=== PATIENT | male | born 1970 | race Caucasian/White ===

== ENCOUNTER 2018-10-08 05:08 | Inpatient (IN) ==
[2018-10-08] MEDS ORDERED: Chlorhexidine Gluconate 2% 1 Pack (2 Cloths) TOPICAL ONE (05:36)
[2018-10-08] MEDS ORDERED: Metoprolol Tartrate 25 MG Tablet PO ONE (05:36)
[2018-10-08] MEDS ORDERED: Vancomycin Inj 1,500 MG in Sodium Chlor 0.9% Inj 500 ML IV.SIG PRN (05:37)
[2018-10-08] MEDS ORDERED: Sodium Chlor 0.9% Inj 500 ML IV.SIG SCH (06:00)
[2018-10-08 06:58] LABS: Baso # (Auto) 0.1 th/mm3 (0.0-0.2); Eos # (Auto) 0.4 th/mm3 (0.0-0.4); Eos % (Auto) 3.4 % (0.0-4.0); Hematocrit 37.3 % (39.0-51.0); Hemoglobin 12.6 gm/dL (13.0-17.0); Lymph # (Auto) 2.2 th/mm3 (1.0-4.8); Lymph % (Auto) 19.5 % (9.0-44.0); Mean Corpuscular HGB Conc 33.8 % (32.0-36.0); Mean Corpuscular Hemoglobin 29.4 pg (27.0-34.0); Mean Corpuscular Volume 87.1 fL (80.0-100.0); Mean Platelet Volume 7.5 fL (7.0-11.0); Mono % (Auto) 8.7 % (0.0-8.0); Neut # (Auto) 7.6 th/mm3 (1.8-7.7); Neut % (Auto) 67.4 % (16.0-70.0); Platelet Count 475 th/mm3 (150-450); Red Blood Count 4.29 mil/mm3 (4.50-5.90); Red Cell Distribution Width 18.2 % (11.6-17.2); White Blood Count 11.2 th/mm3 (4.0-11.0)
[2018-10-08 07:23] LABS: Anion Gap 9 meq/L (5-15); Blood Urea Nitrogen 14 mg/dL (7-18); Calcium 8.2 mg/dL (8.5-10.1); Carbon Dioxide 24.8 meq/L (21.0-32.0); Chloride 107 meq/L (98-107); Glomerular Filtration Rate Greater Than 89 mL/min (>89); Glucose,Random 110 mg/dL (74-106); Potassium 3.7 meq/L (3.5-5.1); Sodium 141 meq/L (136-145)
[2018-10-08] MEDS ORDERED: Bupivacaine Liposomal PF 1.3% Inj 20 ML Vial ONE (07:44)
[2018-10-08] MEDS ORDERED: Clevidipine Inj 25 MG/50 ML VIAL ONE (07:46)
[2018-10-08] MEDS ORDERED: Lidocaine PF 1% Inj 5 ML Syringe OTHER ONE (07:46)
[2018-10-08] MEDS ORDERED: Phenylephrine/NS 1000 MCG/10ML Syringe IV.PUSH ONE (07:46)
[2018-10-08] MEDS ORDERED: Normosol-R pH 7.4 Inj 2,000 ML IV.CONT ONE (07:46)
[2018-10-08] MEDS ORDERED: Sodium Chlor 0.9% Inj 500 ML IV.CONT ONE (07:46)
[2018-10-08] MEDS ORDERED: MethylPREDNISolone Sod Succinate Inj 125 MG/2 ML Vial ONE (08:05)
[2018-10-08] MEDS ORDERED: Sugammadex Inj 200 MG/2 ML Vial IV.PUSH ONE (12:48)
[2018-10-08] MEDS ORDERED: Naloxone Inj 0.4 MG/ML Vial IV.PUSH PRN ×2 (13:20→13:23)
[2018-10-08] MEDS ORDERED: Promethazine 25 MG Supp RECTAL PRN (13:20)
[2018-10-08] MEDS ORDERED: Post-op Orders (for Pharmacy) OTHER ONE (13:20)
--- NOTE | 2018-10-08 13:26 | P.OP ---
- Preoperative Diagnosis (1) Adrenal mass, right (2) Pheochromocytoma of right adrenal gland - Postoperative Diagnosis (1) Adrenal mass, right (2) Pheochromocytoma of right adrenal gland Date of procedure: 10/08/18 Procedure: Exploratory laparotomy, attempted right adrenalectomy, biopsy of adrenal mass Anesthesia: MARY Surgeon: Elder Gilliam MD Servomechanism Assembler: Dr. Kendrick Harrell CFA Estimated blood loss (mL): 300 Pathology: other (Core needle biopsies of right adrenal mass, frozen and permanent section) Operation and Findings: Indications: This is a 48 yo M with incidental finding of right adrenal mass. MRI abdomen revealed heterogenous enhancing mass nearly 6 cm. Urinary metanephrines were elevated and he was treated with alpha milad in escalating doses for about two months until adequately blocked. He is admitted for elective right adrenalectomy. He has a h/o rheumatoid arthritis on multiple suppressive medications and all except low dose prednisone were stopped prior to surgery. Operative findings: Right adrenal mass is superior and medial and in retrocaval position. No significant hemodynamic changes with manipulation of the mass. Due to position of the mass posterior to retrohepatic IVC, resection was unable to be safely performed through the current transabdominal approach despite mobilization of surrounding organs. Dr. Marks, surgical oncologist assisting on the case, as well as my partner Dr. Mejía, agreed that further attempts at resection would be dangerous at this time and resection attempt was aborted. Because we could safely access the inferior aspect of the mass and to obtain tissue diagnosis, core needle biopsies were taken. Procedure in detail: The patient was taken to the operating room placed in the supine position. General endotracheal anesthesia was induced after placement of an arterial line. A central venous line and shell catheter were also placed. The patient was placed in supine position and a small roll was placed under the right flank for slight medial rotation of the right side. The abdomen was prepped and draped in usual sterile fashion and a surgical timeout was performed to verify correct patient procedure and site. A midline incision from xiphoid to just inferior to the umbilicus was made. Dissection carried through subcutaneous tissue and the fascial layer. The peritoneum was entered bluntly. The Bookwalter retractor was placed for appropriate exposure. Using the harmonic scalpel, the hepatic flexure of the colon was taken down. A Kellie maneuver was performed by incising the peritoneal reflection of the second and third portion of the duodenum and gently rotating this medially. The duodenum was mobilized superiorly to the shanique hepatis. This exposed the underlying IVC. The right border of the IVC was meticulously cleared of attached tissues. There were 2 areas of mild venous bleeding which were resolved using Surgicel snow and gentle pressure. The right gonadal vein was identified. The right renal vein was identified clearly entering the hilum of the right kidney. The right adrenal mass was noted to be very superior and medial in position. At this point, no portion of the adrenal mass was palpable inferior to the inferior border of the liver. The falciform ligament was divided. The left triangular ligament of the liver was divided in the left lobe rotated laterally. The gastrohepatic ligament was divided just past the shanique hepatis. With fairly aggressive retraction on the left lobe of the liver the right adrenal mass was palpable but continued to be superior to the area of exposure as well as posterior to the retrohepatic inferior vena cava. Exposure was attempted via this window medial to the shanique hepatis to the lesser sac as well as lateral to the shanique hepatis with superior retraction on the liver. The right adrenal mass was unable to be safely mobilized and resected. The inferior one third or so of the mass was mobilized using the harmonic scalpel. At this point we did send 3 core needle biopsies and frozen section revealed concerns for malignant pheochromocytoma. The mass was quite vascular and bleeding was resolved with Surgicel snow and FloSeal. We again attempted aggressive exposure of this mass. However the adrenal vein as well as the adherent area of the mass to the posterior IVC were unable to be safely exposed. Both Dr. Marks and I, as well as my partner Dr. Darinel Valdes felt that further attempts at resection were unsafe. Therefore, resection attempts were aborted. Hemostasis was adequate at this point. The midline fascia was then closed with #1 looped PDS suture. A [id number] #2 Vicryl was placed at the xiphoid for better closure. Skin was closed with wide skin garo sterile dressing applied. The patient tolerated the procedure well. He did not have hemodynamic instability. Sponge and instrument counts were correct.
[2018-10-08] MEDS ORDERED: HYDROmorphone PCA Inj 6 MG/30 ML PCA.VIAL PCA ONE (13:33)
[2018-10-08] MEDS: Sod Chloride 0.9% Inj 1,000 ML IV.CONT SCH ×2 (13:40→23:40)
[2018-10-08] MEDS ORDERED: Morphine Inj 4 MG/ML Vial ONE (13:44)
[2018-10-08] MEDS ORDERED: fentaNYL Citrate Inj 100 MCG/2 ML Ampul ONE (13:44)
[2018-10-08] MEDS: HYDROmorphone PCA Inj 6 MG/30 ML PCA.VIAL PCA PRN ×2 (14:00→22:30)
[2018-10-08 14:04] LABS: Hematocrit 36.2 % (39.0-51.0); Hemoglobin 12.2 gm/dL (13.0-17.0); Mean Corpuscular HGB Conc 33.6 % (32.0-36.0); Mean Corpuscular Hemoglobin 29.5 pg (27.0-34.0); Mean Corpuscular Volume 87.9 fL (80.0-100.0); Mean Platelet Volume 7.4 fL (7.0-11.0); Platelet Count 488 th/mm3 (150-450); Red Blood Count 4.12 mil/mm3 (4.50-5.90); Red Cell Distribution Width 17.9 % (11.6-17.2); White Blood Count 23.6 th/mm3 (4.0-11.0)
--- NOTE | 2018-10-08 14:04 | XR ---
EXAM DATE: 10/08/2018 1:58 PM EST AGE/SEX: 48 years / Male INDICATIONS: Evaluate right side central line. CLINICAL DATA: This is the patient's initial encounter. Patient reports that signs and symptoms have been present for 1 day and indicates a pain score of Nonresponsive. MEDICAL/SURGICAL HISTORY: Non-responsive. Non-responsive. COMPARISON: No prior exams available for comparison. FINDINGS: The heart is enlarged. There are bilateral effusions incision interstitial prominence consistent with congestive failure. The patient's central venous catheters in satisfactory position. CONCLUSION: Cardiomegaly with effusions and interstitial prominence suggesting CHF. Central venous catheter in go od position. Electronically signed by: Iron Chapman MD 10/08/2018 2:03 PM EST
[2018-10-08] MEDS ORDERED: *morphine SULFATE 4 MG/ML PERIprocedure ONLY ONE (14:13)
[2018-10-08] MEDS ORDERED: *Ondansetron Inj 4 MG/2 ML Vial PERIprocedural Use ONLY ONE (14:13)
[2018-10-08] MEDS ORDERED: *Labetalol HCl Inj 100 MG/20 ML Vial PERIprocedural Use ONLY IV.PUSH ONE (14:39)
--- NOTE | 2018-10-08 14:47 | ECG ---
Date Performed: 10/08/2018 Time Performed: 07:35:55 PTAGE: 48 years EKG: Ectopic atrial rhythm NONSPECIFIC ST & T-WAVE ABNORMALITY BORDERLINE ECG Compared to PREVIOUS TRACING the patient now appears to be in ectopic rhythm PREVIOUS TRACIN01/28 08.23 DOCTOR: Ayde Garcia Interpretating Date/Time 10/08/2018 14:45:43
[2018-10-08] MEDS: Ketorolac Inj 30 MG/ML (IVP) Vial IV.PUSH SCH ×2 (14:53→21:29)
[2018-10-08] MEDS ORDERED: *Enalaprilat Inj 1.25 MG/ML Vial IV.PUSH ONE (15:22)
[2018-10-08] MEDS ORDERED: Labetalol HCl Inj 100 MG/20 ML Vial IV.PUSH PRN (16:54)
[2018-10-08] MEDS ORDERED: Prazosin HCl 1 MG Capsule PO SCH (17:00)
[2018-10-08] MEDS: Metoprolol Tartrate 25 MG Tablet PO SCH (21:30)
[2018-10-09] MEDS: HYDROmorphone PCA Inj 6 MG/30 ML PCA.VIAL PCA PRN ×7 (02:30→20:56)
[2018-10-09] MEDS: Ketorolac Inj 30 MG/ML (IVP) Vial IV.PUSH SCH ×4 (03:12→20:15)
[2018-10-09 06:10] LABS: Baso % (Auto) 0.2 % (0.0-2.0); Eos % (Auto) 0.3 % (0.0-4.0); Hematocrit 35.4 % (39.0-51.0); Lymph # (Auto) 0.8 th/mm3 (1.0-4.8); Lymph % (Auto) 5.7 % (9.0-44.0); Mean Corpuscular HGB Conc 31.2 % (32.0-36.0); Mean Corpuscular Volume 89.8 fL (80.0-100.0); Mean Platelet Volume 7.6 fL (7.0-11.0); Mono # (Auto) 0.9 th/mm3 (0.0-0.9); Mono % (Auto) 6.2 % (0.0-8.0); Neut % (Auto) 87.6 % (16.0-70.0); Platelet Count 389 th/mm3 (150-450); Red Blood Count 3.94 mil/mm3 (4.50-5.90); Red Cell Distribution Width 17.7 % (11.6-17.2); White Blood Count 14.9 th/mm3 (4.0-11.0)
[2018-10-09 06:22] LABS: Anion Gap 6 meq/L (5-15); Blood Urea Nitrogen 18 mg/dL (7-18); Calcium 7.6 mg/dL (8.5-10.1); Carbon Dioxide 29.9 meq/L (21.0-32.0); Chloride 106 meq/L (98-107); Glomerular Filtration Rate Greater Than 89 mL/min (>89); Glucose,Random 109 mg/dL (74-106); Potassium 4.5 meq/L (3.5-5.1); Sodium 142 meq/L (136-145)
[2018-10-09] MEDS: Sod Chloride 0.9% Inj 1,000 ML IV.CONT SCH ×2 (07:39→19:56)
[2018-10-09] MEDS: predniSONE 5 MG Tablet PO SCH (08:38)
[2018-10-09] MEDS: Metoprolol Tartrate 25 MG Tablet PO SCH ×2 (08:38→20:15)
[2018-10-09] MEDS ORDERED: PROPECIA PO SCH (09:00)
[2018-10-09] MEDS: Enoxaparin Inj 40 MG/0.4 ML Syringe SQ SCH (12:55)
--- NOTE | 2018-10-09 14:11 | P.PNGS ---
Subjective Interval history: C/o hiccups. Tolerating water. Was OOB and walked today. Physical Exam Vital signs: Vital Signs 10/08/18 14:10 10/08/18 14:15 10/08/18 14:16 Temperature Pulse Rate 74 76 Respiratory Rate 16 17 15 Blood Pressure 163/85 H 159/85 H Pulse Oximetry 95 96 10/08/18 14:30 10/08/18 14:45 10/08/18 15:00 Temperature 97.4 F L Pulse Rate 75 65 65 Respiratory Rate 14 15 16 Blood Pressure 160/88 H 165/89 H 165/87 H Pulse Oximetry 93 L 97 99 10/08/18 15:15 10/08/18 15:30 10/08/18 15:45 Temperature Pulse Rate 64 72 68 Respiratory Rate 13 19 14 Blood Pressure 163/88 H 169/81 H 158/90 H Pulse Oximetry 100 100 100 10/08/18 16:08 10/08/18 16:19 10/08/18 17:00 Temperature 97.6 F Pulse Rate 68 68 Respiratory Rate 17 16 Blood Pressure 185/94 H 173/95 H Pulse Oximetry 98 99 89 L 10/08/18 17:10 10/08/18 18:00 10/08/18 18:10 Temperature Pulse Rate 70 81 61 Respiratory Rate 18 12 16 Blood Pressure 170/82 H 167/82 H Pulse Oximetry 97 96 96 10/08/18 19:00 10/08/18 19:10 10/08/18 20:00 Temperature 98.1 F Pulse Rate 67 69 73 Respiratory Rate 20 23 25 H Blood Pressure 146/89 H Pulse Oximetry 97 93 L 98 10/08/18 20:10 10/08/18 21:00 10/08/18 21:10 Temperature Pulse Rate 75 71 70 Respiratory Rate 19 19 10 L Blood Pressure 139/61 149/95 H Pulse Oximetry 97 96 98 10/08/18 22:00 10/08/18 22:10 10/08/18 23:00 Temperature Pulse Rate 69 68 65 Respiratory Rate 18 17 12 Blood Pressure 128/84 Pulse Oximetry 96 96 95 10/08/18 23:10 10/09/18 00:00 10/09/18 01:00 Temperature 98.5 F Pulse Rate 68 72 69 Respiratory Rate 10 L 12 13 Blood Pressure 123/68 122/61 106/60 Pulse Oximetry 95 95 95 10/09/18 02:00 10/09/18 03:00 10/09/18 04:00 Temperature 98.7 F Pulse Rate 73 65 71 Respiratory Rate 13 33 H 24 Blood Pressure 97/63 L Pulse Oximetry 95 90 L 100 10/09/18 07:00 10/09/18 07:10 10/09/18 08:00 Temperature 98.9 F Pulse Rate 70 70 78 Respiratory Rate 28 H 25 H 33 H Blood Pressure 123/59 L Pulse Oximetry 99 99 95 10/09/18 08:07 10/09/18 08:10 10/09/18 08:34 Temperature Pulse Rate 74 Respiratory Rate 18 27 H 20 Blood Pressure 107/58 L Pulse Oximetry 94 L 10/09/18 09:00 10/09/18 09:10 10/09/18 09:28 Temperature Pulse Rate 79 74 79 Respiratory Rate 22 24 24 Blood Pressure 104/71 111/59 L Pulse Oximetry 94 L 93 L 93 L 10/09/18 10:00 10/09/18 10:10 10/09/18 11:00 Temperature Pulse Rate 71 72 69 Respiratory Rate 16 16 27 H Blood Pressure 107/59 L Pulse Oximetry 93 L 92 L 89 L 10/09/18 11:10 10/09/18 12:00 Temperature 98.7 F Pulse Rate 71 63 Respiratory Rate 23 14 Blood Pressure 117/63 Pulse Oximetry 93 L 93 L Intake & Output 10/08/18 10/09/18 10/09/18 18:59 06:59 18:59 Intake Total 6100 / 6100 1340 / 1340 200 / 200 Output Total 1500 / 1500 550 / 550 Balance 4600 / 4600 790 / 790 200 / 200 Intake: IV 100 / 100 1100 / 1100 200 / 200 NS Inj 1,000 ML @ 50 mls/hr IV. 1000 / 1000 CONT .Q20H DAMIAN Rx#:[id number] Ofirmev Inj 1,000 mg In 100 ml 100 / 100 100 / 100 200 / 200 @ 400 mls/hr IV.SIG Q6H DAMIAN Rx# :[id number] LR 1000 mL Inj 1,000 ML @ 30 0 / 0 mls/hr IV.SIG .Q24H DAMIAN Rx#: [id number] Oral 240 / 240 Anesthesia Amount 6000 / 6000 Output: Urine 600 / 600 Estimated Blood Loss 800 / 800 Urine Amount (Catheter) 100 / 100 550 / 550 Indwelling Urethral Catheter 100 / 100 550 / 550 Narrative: NAD O2 sat low 90s on NC O2 Abd: soft, bandage in place Shell clear uop - Urinary Catheter Management Indwelling Urethral Catheter Cath placed during this visit: yes Reason for continuing: Hourly intake/output Insertion date: 10/08/18 Results - Labs 10/09/18 05:09 10/09/18 05:09 Laboratory Results - last 24 hr 10/09/18 10/09/18 05:09 05:09 WBC 14.9 H RBC 3.94 L Hgb 11.0 L Hct 35.4 L MCV 89.8 MCH 28.0 MCHC 31.2 L RDW 17.7 H Plt Count 389 MPV 7.6 Neut % (Auto) 87.6 H Lymph % (Auto) 5.7 L Yell % (Auto) 6.2 Eos % (Auto) 0.3 Baso % (Auto) 0.2 Neut # (Auto) 13.0 H Lymph # (Auto) 0.8 L Yell # (Auto) 0.9 Eos # (Auto) 0.0 Baso # (Auto) 0.0 WBC Differential . Differential Comment Auto diff final Sodium 142 Potassium 4.5 D Chloride 106 Carbon Dioxide 29.9 Anion Gap 6 BUN 18 Creatinine 0.56 L Estimated GFR Greater than 89 Random Glucose 109 H Calcium 7.6 L - Imaging Imaging: ITS Impressions Chest X-Ray 10/08/18 13:40 CONCLUSION: Cardiomegaly with effusions and interstitial prominence suggesting CHF. Central venous catheter in good position. Assessment and Plan - Assessment (1) Adrenal mass, right Code(s): E27.9 - Disorder of adrenal gland, unspecified Status: Acute - Plan POD 1 ex lap and biopsy of right adrenal mass. Stable post op. Has hiccups. O2 sat marginal on O2. Give lasix 20mg. Cont DECORATION CHECKER Cont shell. Fulls. DVT proph: SCDs. Lovenox.
[2018-10-10] MEDS: Ketorolac Inj 30 MG/ML (IVP) Vial IV.PUSH SCH ×4 (03:21→21:58)
[2018-10-10] MEDS: Sod Chloride 0.9% Inj 1,000 ML IV.CONT SCH (03:21)
[2018-10-10 04:25] LABS: Hematocrit 29.7 % (39.0-51.0); Hemoglobin 9.6 gm/dL (13.0-17.0); Mean Corpuscular HGB Conc 32.3 % (32.0-36.0); Mean Corpuscular Hemoglobin 28.5 pg (27.0-34.0); Mean Corpuscular Volume 88.2 fL (80.0-100.0); Mean Platelet Volume 7.5 fL (7.0-11.0); Platelet Count 325 th/mm3 (150-450); Red Blood Count 3.36 mil/mm3 (4.50-5.90); Red Cell Distribution Width 17.8 % (11.6-17.2); White Blood Count 11.2 th/mm3 (4.0-11.0)
[2018-10-10 05:09] LABS: Anion Gap 6 meq/L (5-15); Blood Urea Nitrogen 21 mg/dL (7-18); Calcium 7.7 mg/dL (8.5-10.1); Carbon Dioxide 30.1 meq/L (21.0-32.0); Chloride 103 meq/L (98-107); Glomerular Filtration Rate Greater Than 89 mL/min (>89); Glucose,Random 86 mg/dL (74-106); Potassium 4.2 meq/L (3.5-5.1); Sodium 139 meq/L (136-145)
[2018-10-10] MEDS: Metoprolol Tartrate 25 MG Tablet PO SCH ×2 (08:29→21:58)
[2018-10-10] MEDS: predniSONE 5 MG Tablet PO SCH (08:30)
[2018-10-10] MEDS: HYDROmorphone PCA Inj 6 MG/30 ML PCA.VIAL PCA PRN ×4 (08:30→21:58)
--- NOTE | 2018-10-10 10:32 | P.PNGS ---
Subjective Interval history: No complaints. Tolerating some diet. Pain controlled with MANAGER OF PLANNING. Requiring O2. Physical Exam Vital signs: Vital Signs 10/09/18 11:00 10/09/18 11:10 10/09/18 12:00 Temperature 98.7 F Pulse Rate 69 71 63 Respiratory Rate 27 H 23 14 Blood Pressure 117/63 Pulse Oximetry 89 L 93 L 93 L 10/09/18 12:10 10/09/18 13:00 10/09/18 13:10 Temperature Pulse Rate 65 71 65 Respiratory Rate 14 16 16 Blood Pressure 107/53 L 108/52 L Pulse Oximetry 88 L 93 L 91 L 10/09/18 14:00 10/09/18 14:10 10/09/18 15:00 Temperature Pulse Rate 81 74 70 Respiratory Rate 26 H 26 H 20 Blood Pressure 104/55 L Pulse Oximetry 90 L 89 L 84 L 10/09/18 15:10 10/09/18 16:00 10/09/18 16:10 Temperature 98.5 F Pulse Rate 66 73 72 Respiratory Rate 15 16 22 Blood Pressure 98/53 L 97/56 L Pulse Oximetry 93 L 94 L 94 L 10/09/18 17:00 10/09/18 17:10 10/09/18 18:00 Temperature Pulse Rate 75 68 77 Respiratory Rate 24 25 H 28 H Blood Pressure 105/53 L Pulse Oximetry 95 96 91 L 10/09/18 18:10 10/09/18 19:00 10/09/18 20:00 Temperature 98.4 F Pulse Rate 63 70 69 Respiratory Rate 15 14 12 Blood Pressure 102/50 L 98/63 L 100/57 L Pulse Oximetry 95 95 99 10/09/18 21:00 10/09/18 22:00 10/09/18 23:00 Temperature Pulse Rate 71 68 67 Respiratory Rate 20 10 L 10 L Blood Pressure 107/56 L 100/57 L 101/54 L Pulse Oximetry 99 98 100 10/10/18 00:00 10/10/18 01:00 10/10/18 02:00 Temperature 98 F Pulse Rate 65 69 67 Respiratory Rate 11 L 11 L 10 L Blood Pressure 97/55 L 111/56 L 117/57 L Pulse Oximetry 99 100 100 10/10/18 03:00 10/10/18 04:00 10/10/18 05:00 Temperature 98.4 F Pulse Rate 68 74 66 Respiratory Rate 18 137 H 11 L Blood Pressure 113/56 L 112/56 L 109/59 L Pulse Oximetry 100 95 98 10/10/18 06:00 10/10/18 06:10 10/10/18 07:00 Temperature Pulse Rate 69 69 68 Respiratory Rate 12 9 L 9 L Blood Pressure 122/65 122/65 Pulse Oximetry 98 98 97 10/10/18 07:10 Temperature Pulse Rate 69 Respiratory Rate 9 L Blood Pressure 118/57 L Pulse Oximetry 98 Intake & Output 10/09/18 10/10/18 10/10/18 18:59 06:59 18:59 Intake Total 200 / 200 1240 / 1240 Output Total 800 / 800 650 / 650 Balance -600 / -600 590 / 590 Intake: IV 200 / 200 1000 / 1000 NS Inj 1,000 ML @ 50 mls/hr IV. 1000 / 1000 CONT .Q20H DAMIAN Rx#:[id number] Ofirmev Inj 1,000 mg In 100 ml 200 / 200 @ 400 mls/hr IV.SIG Q6H DAMIAN Rx# :[id number] Oral 240 / 240 Output: Urine Amount (Catheter) 800 / 800 650 / 650 Indwelling Urethral Catheter 800 / 800 650 / 650 Other: # Bowel Movements 0 Narrative: NAD Abd: soft, inc c/d/i Shell ever urine - Urinary Catheter Management Indwelling Urethral Catheter Cath placed during this visit: yes Reason for continuing: Hourly intake/output Insertion date: 10/08/18 Results - Labs 10/10/18 03:55 10/10/18 03:55 Laboratory Results - last 24 hr 10/10/18 10/10/18 03:55 03:55 WBC 11.2 H RBC 3.36 L Hgb 9.6 L Hct 29.7 L MCV 88.2 MCH 28.5 MCHC 32.3 RDW 17.8 H Plt Count 325 MPV 7.5 Sodium 139 Potassium 4.2 Chloride 103 Carbon Dioxide 30.1 Anion Gap 6 BUN 21 H Creatinine 0.53 L Estimated GFR Greater than 89 Random Glucose 86 Calcium 7.7 L - Imaging Imaging: ITS Impressions Chest X-Ray 10/08/18 13:40 CONCLUSION: Cardiomegaly with effusions and interstitial prominence suggesting CHF. Central venous catheter in good position. Assessment and Plan - Assessment (1) Adrenal mass, right Code(s): E27.9 - Disorder of adrenal gland, unspecified Status: Acute - Plan POD 2 ex lap and biopsy of right adrenal mass. Stable post op. Cont MANAGER OF PLANNING D/c shell. Fulls. DVT proph: SCDs. Lovenox. Transfer to floor.
[2018-10-10] MEDS: Enoxaparin Inj 40 MG/0.4 ML Syringe SQ SCH (12:00)
[2018-10-11] MEDS: Ketorolac Inj 30 MG/ML (IVP) Vial IV.PUSH SCH ×5 (03:11→20:09)
[2018-10-11] MEDS: HYDROmorphone PCA Inj 6 MG/30 ML PCA.VIAL PCA PRN (06:04)
[2018-10-11 06:14] LABS: Hemoglobin 8.4 gm/dL (13.0-17.0); Mean Corpuscular HGB Conc 33.7 % (32.0-36.0); Mean Corpuscular Hemoglobin 29.4 pg (27.0-34.0); Mean Corpuscular Volume 87.3 fL (80.0-100.0); Mean Platelet Volume 7.6 fL (7.0-11.0); Platelet Count 312 th/mm3 (150-450); Red Blood Count 2.87 mil/mm3 (4.50-5.90); Red Cell Distribution Width 17.6 % (11.6-17.2); White Blood Count 12.6 th/mm3 (4.0-11.0)
[2018-10-11 06:45] LABS: Anion Gap 5 meq/L (5-15); Blood Urea Nitrogen 17 mg/dL (7-18); Calcium 7.4 mg/dL (8.5-10.1); Carbon Dioxide 30.7 meq/L (21.0-32.0); Chloride 100 meq/L (98-107); Glomerular Filtration Rate Greater Than 89 mL/min (>89); Glucose,Random 113 mg/dL (74-106); Potassium 4.2 meq/L (3.5-5.1); Sodium 136 meq/L (136-145)
[2018-10-11 07:10] LABS: Calcium-Albumin Corrected 8.8 mg/dL (8.5-10.1); Total Protein 4.6 g/dL (6.4-8.2)
[2018-10-11] MEDS: predniSONE 5 MG Tablet PO SCH (09:51)
[2018-10-11] MEDS: Metoprolol Tartrate 25 MG Tablet PO SCH ×2 (09:51→20:12)
[2018-10-11] MEDS ORDERED: HYDROmorphone PF Inj 0.5 MG/0.5 ML Syringe IV.PUSH PRN (12:24)
--- NOTE | 2018-10-11 12:28 | P.PNGS ---
Subjective Interval history: Doing well without complaint. Tolerating diet. No bm yet. Requiring O2. Physical Exam Vital signs: Vital Signs 10/10/18 13:00 10/10/18 13:10 10/10/18 14:00 Temperature Pulse Rate 71 71 75 Respiratory Rate 16 12 11 L Blood Pressure 131/60 Pulse Oximetry 94 L 94 L 90 L 10/10/18 14:10 10/10/18 15:00 10/10/18 15:10 Temperature Pulse Rate 76 76 80 Respiratory Rate 13 19 30 H Blood Pressure 138/63 148/60 H Pulse Oximetry 86 L 94 L 93 L 10/10/18 15:41 10/10/18 16:00 10/10/18 16:10 Temperature 98.3 F Pulse Rate 75 85 Respiratory Rate 14 127 H 119 H Blood Pressure 131/64 Pulse Oximetry 96 95 10/10/18 17:00 10/10/18 19:45 10/10/18 19:46 Temperature Pulse Rate 75 Respiratory Rate 16 19 Blood Pressure Pulse Oximetry 95 10/10/18 20:00 10/11/18 00:40 10/11/18 03:10 Temperature 98.9 F 98.1 F 98.8 F Pulse Rate 86 76 77 Respiratory Rate 18 18 18 Blood Pressure 111/59 L 110/55 L 124/59 L Pulse Oximetry 95 93 L 90 L 10/11/18 08:00 10/11/18 08:10 10/11/18 10:21 Temperature 98.8 F Pulse Rate 78 72 Respiratory Rate 20 16 18 Blood Pressure 118/56 L Pulse Oximetry 90 L 90 L 10/11/18 11:00 10/11/18 12:00 Temperature 98.2 F Pulse Rate 89 Respiratory Rate 18 16 Blood Pressure 113/57 L Pulse Oximetry 90 L Intake & Output 10/10/18 10/11/18 10/11/18 18:59 06:59 18:59 Intake Total 1035 / 1035 1440 / 1440 Output Total 670 / 670 Balance 365 / 365 1440 / 1440 Weight 98.3 kg Intake: IV 515 / 515 1100 / 1100 Vancomycin Inj 1,500 MG In NS 515 / 515 Inj 500 ML @ 250 mls/hr IV.SIG SOFTWARE BUSINESS ANALYST PRN Rx#:[id number] Oral 520 / 520 340 / 340 Output: Urine 120 / 120 Urine Amount (Catheter) 550 / 550 Indwelling Urethral Catheter 550 / 550 Other: # Voids 1 600 Date of Last Bowel Movement 10/06/18 10/06/18 10/06/18 Narrative: NAD, sitting comfortably in chair Nonlabored breathing on 4L O2 Abd: soft, inc c/d/i - Urinary Catheter Management Indwelling Urethral Catheter Cath placed during this visit: yes Reason for continuing: Hourly intake/output Insertion date: 10/08/18 Results - Labs 10/11/18 05:00 10/11/18 05:00 Laboratory Results - last 24 hr 10/08/18 10/11/18 10/11/18 06:35 05:00 05:00 WBC 12.6 H RBC 2.87 L Hgb 8.4 L Hct 25.0 L MCV 87.3 MCH 29.4 MCHC 33.7 RDW 17.6 H Plt Count 312 MPV 7.6 Sodium 136 Potassium 4.2 Chloride 100 Carbon Dioxide 30.7 Anion Gap 5 BUN 17 Creatinine 0.45 L Estimated GFR Greater than 89 Random Glucose 113 H Calcium 7.4 L* Prot Corrected Calcium 8.8 Total Protein 4.6 L MTS Gel Crossmatch See Detail - Imaging Imaging: ITS Impressions Chest X-Ray 10/08/18 13:40 CONCLUSION: Cardiomegaly with effusions and interstitial prominence suggesting CHF. Central venous catheter in good position. Assessment and Plan - Plan POD 3 ex lap and biopsy of right adrenal mass. Stable post op. Recheck CBC in am as h/h has been trending down. D/c MANAGER ADVANCED Regular diet. DVT proph: SCDs. Lovenox.
[2018-10-11] MEDS: HYDROmorphone PF Inj 1 MG/ML Ampul IV.PUSH PRN ×2 (16:56→21:52)
[2018-10-11] MEDS: Enoxaparin Inj 40 MG/0.4 ML Syringe SQ SCH (16:59)
[2018-10-12] MEDS: Ketorolac Inj 30 MG/ML (IVP) Vial IV.PUSH SCH ×3 (03:39→16:00)
[2018-10-12] MEDS: ALPRAZolam 0.5 MG Tablet PO PRN ×2 (03:44→13:11)
[2018-10-12 08:06] LABS: Hematocrit 26.2 % (39.0-51.0); Hemoglobin 8.8 gm/dL (13.0-17.0); Mean Corpuscular HGB Conc 33.7 % (32.0-36.0); Mean Corpuscular Hemoglobin 28.9 pg (27.0-34.0); Mean Platelet Volume 7.9 fL (7.0-11.0); Platelet Count 346 th/mm3 (150-450); Red Blood Count 3.05 mil/mm3 (4.50-5.90); Red Cell Distribution Width 17.7 % (11.6-17.2); White Blood Count 11.9 th/mm3 (4.0-11.0)
[2018-10-12] MEDS: Metoprolol Tartrate 25 MG Tablet PO SCH (08:58)
[2018-10-12] MEDS: predniSONE 5 MG Tablet PO SCH (09:01)
[2018-10-12 12:09] VITALS: BP 105/56; TEMP 98.3
[2018-10-12 13:28] VITALS: PULSE 80; RESP 16
--- NOTE | 2018-10-12 13:35 | P.PNGS ---
Subjective Patient reports: no new complaints, tolerating a regular diet, flatus, no bowel movement Physical Exam Vital signs: Vital Signs 10/11/18 16:00 10/11/18 17:26 10/11/18 17:52 Temperature 97.9 F Pulse Rate 79 Respiratory Rate 20 16 16 Blood Pressure 119/58 L Pulse Oximetry 91 L 10/11/18 20:00 10/11/18 20:37 10/11/18 20:38 Temperature 98.7 F Pulse Rate 84 79 Respiratory Rate 18 20 Blood Pressure 118/56 L Pulse Oximetry 91 L 91 L 10/11/18 20:40 10/11/18 23:40 10/12/18 04:00 Temperature 97.7 F 98.4 F Pulse Rate 74 80 Respiratory Rate 19 18 18 Blood Pressure 99/56 L 117/59 L Pulse Oximetry 91 L 91 L 10/12/18 08:00 10/12/18 08:24 10/12/18 10:10 Temperature 98.0 F Pulse Rate 79 76 Respiratory Rate 18 16 16 Blood Pressure 124/64 Pulse Oximetry 91 L 95 10/12/18 10:11 10/12/18 12:00 10/12/18 13:27 Temperature 98.3 F Pulse Rate 71 80 Respiratory Rate 16 18 16 Blood Pressure 105/56 L Pulse Oximetry 90 L Intake & Output 10/11/18 10/12/18 10/12/18 18:59 06:59 18:59 Intake Total 1180 / 1180 320 / 320 Output Total 1400 / 1400 Balance 1180 / 1180 -1080 / -1080 Weight 99.7 kg Intake: Oral 1180 / 1180 320 / 320 Output: Urine 1400 / 1400 Other: # Voids 3 Date of Last Bowel Movement 10/06/18 10/06/18 10/06/18 - Constitutional no acute distress - Routine Respiratory Exam Absent: accessory muscle use - Routine Cardiovascular Exam Present: RRR - Routine Abdominal Exam Present: soft, surgical scars. Absent: tenderness, distended - Urinary Catheter Management Indwelling Urethral Catheter Cath placed during this visit: yes Reason for continuing: Hourly intake/output Insertion date: 10/08/18 Results - Labs 10/12/18 06:07 10/11/18 05:00 Laboratory Results - last 24 hr 10/12/18 06:07 WBC 11.9 H RBC 3.05 L Hgb 8.8 L Hct 26.2 L MCV 86.0 MCH 28.9 MCHC 33.7 RDW 17.7 H Plt Count 346 MPV 7.9 - Imaging Imaging: ITS Impressions Chest X-Ray 10/08/18 13:40 CONCLUSION: Cardiomegaly with effusions and interstitial prominence suggesting CHF. Central venous catheter in good position. Assessment and Plan - Assessment (1) Adrenal mass, right Code(s): E27.9 - Disorder of adrenal gland, unspecified Status: Acute Plan: D/C home f/u office next week no strenuous activities call office for fever chills increase abdominal pain
[2018-10-12 14:39] VITALS: O2SAT 95
--- NOTE | 2018-10-29 11:52 | P.DS ---
Date of admission: 10/08/18 05:08 Primary care physician: Mahsa Spencer MD Attending physician on discharge: Darinel Mejía Brief History from admission: Pt admitted for laproscopic biopsy of right adrenal phechromocytoma, with expoloratory laparotomy attempting to resect right adrenal mass. Mass was successfully biopsied however, Dr. Gilliam was unable to safely resect the right adrenal mass. Postoperative recovery proceeded with minimal complication, and patient was discharged home with follow up outpatient in 10 days. This note documented on behalf of Dr. Mejía. DS: Diagnosis - Discharge Diagnosis (1) Adrenal mass, right Status: Acute (2) Pheochromocytoma of right adrenal gland Status: Acute DS: Medications - Discharge Medications Prescriptions: hydrocodone-acetaminophen [[place]] 1 - 2 tab PO Q4H PRN #40 tab PRN Reason: Acute Pain DS: Summary Hospital Course: with minimal complication. - Time Spent with Patient Total time spent providing and/or coordinating discharge services: Less than 30 minutes - Quality: AMI Clinical Trial Participant: No - Quality: Stroke Symptom Onset Unknown: No - Quality: VTE Is this test being ordered to rule out VTE?: No Deep Vein Thrombosis/Pulmonary Embolism Present on Admission: No Exam Narrative: GENERAL: SKIN: Warm and dry. HEAD: Normocephalic. EYES: No scleral icterus. No injection or drainage. NECK: Supple, trachea midline. No JVD or lymphadenopathy. CARDIOVASCULAR: Regular rate and rhythm without murmurs, gallops, or rubs. RESPIRATORY: Breath sounds equal bilaterally. No accessory muscle use. GASTROINTESTINAL: Abdomen soft, normal post operative tenderness, laparoscopic sites WNL, mildly distended. MUSCULOSKELETAL: No cyanosis, or edema. BACK: Nontender without obvious deformity. No CVA tenderness. Results Procedures completed during hospitalization: Exploratory laparotomy attempted resection of right adrenal mass, with successful right adrenal mass biopsy. - Impressions ITS Impressions Chest X-Ray 10/08/18 13:40 CONCLUSION: Cardiomegaly with effusions and interstitial prominence suggesting CHF. Central venous catheter in good position. Discharge Plan - Discharge Disposition Patient Disposition: 01 Discharge Home - Discharge Condition Condition: Good - Discharge Order Discharge Orders: Discharge Order (Routine); Ordered 10/12/18 Ordered By: Darinel Mejía - Discharge Details Anticipated Discharge Date: 10/12/18 - Physicians Team Primary Care Provider: Mahsa Spencer Attending Provider: Elder Gilliam - Rxs /Orders / Referrals /Forms Prescriptions: New hydrocodone-acetaminophen [[place]] 5-325 mg Tablet 1 - 2 tab PO Q4H PRN (Reason: Acute Pain) Qty: 40 RF: 0 Continue alprazolam 1 mg Tablet 0.5 mg PO BID PRN (Reason: Anxiety) aspirin [Adult Low Dose Aspirin] 81 mg Tablet,Delayed Release (Dr/Ec) 81 mg PO DAILY finasteride 1 mg Tablet 1 mg PO DAILY folic acid 1 mg Tablet 1 mg PO DAILY hydroxychloroquine [Plaquenil] 200 mg Tablet 200 mg PO DAILY hydroxychloroquine [Plaquenil] 200 mg Tablet methotrexate 2.5 mg/mL Solution 20 mg/m2 PO QWEEK metoprolol tartrate 25 mg Tablet 25 mg PO BID nifedipine 30 mg Tablet Extended Release 30 mg PO DAILY prazosin 2 mg Capsule 2 mg PO BID prednisone 5 mg Tablet 5 mg PO DAILY tofacitinib [Xeljanz XR] 11 mg Tablet Extended Release 24 Hr 11 mg PO DAILY Referrals: Mahsa Spencer MD [Primary Care Provider] - See Instructions - Discharge Instructions Patient Printed Instructions: Hydrocodone/Acetaminophen (By mouth), Exploratory Laparoscopy (DC), Exploratory Laparotomy (DC), Adrenal pheochromocytoma (GEN)
== END 2018-10-12 15:56 | disposition home or self-care (01) | DRG 615 ==
LOC: HSDI 05:08 → N03 16:07 → N06 10-10 17:55
PROVIDERS: ADMIT Surgery; ATTEND Surgery
CPT/HCPCS: 71010; 71045; 76937; 80048; 84155; 85025; 85027; 86850; 86900; 86901; 86923; 88305; 88331; 88341; 88342; 88343; 93005; 94150; 94640; 94665; 97110; 97116; 97162; C1765; C9248; C9290; G0461; G0462; J0131; J1170; J1650; J1885; J1940; J2250; J2270; J2370; J2405; J2704; J2930; J3010; J3370; J7030; J7040; J7120; J7506; J7512